=== PATIENT | male | born 1945 | race Caucasian/White ===

== ENCOUNTER → 2018-11-01 | Outpatient (CLI) | payer MEDICARE, BC | END | disposition home or self-care (01) | LOC: PCVCCLINIC 14:36 | PROVIDERS: ATTEND Internal Medicine | DX: I25.119 Atherosclerotic heart disease of native coronary artery with unspecified angina pectoris (principal); I11.0 Hypertensive heart disease with heart failure; I50.32 Chronic diastolic (congestive) heart failure; E78.5 Hyperlipidemia, unspecified; E11.9 Type 2 diabetes mellitus without complications; G47.33 Obstructive sleep apnea (adult) (pediatric); Z91.030 Bee allergy status; Z87.891 Personal history of nicotine dependence; Z72.89 Other problems related to lifestyle; Z79.82 Long term (current) use of aspirin | CPT/HCPCS: 93005; G0463 ==

== ENCOUNTER → 2018-11-01 | Outpatient (CLI) | payer MEDICARE, BC | END | disposition home or self-care (01) | LOC: PCVCCLINIC 15:15 | PROVIDERS: ATTEND Internal Medicine | DX: I25.119 Atherosclerotic heart disease of native coronary artery with unspecified angina pectoris (principal); I11.0 Hypertensive heart disease with heart failure; I50.32 Chronic diastolic (congestive) heart failure; E78.5 Hyperlipidemia, unspecified; E11.9 Type 2 diabetes mellitus without complications; G47.33 Obstructive sleep apnea (adult) (pediatric); Z87.891 Personal history of nicotine dependence; Z72.89 Other problems related to lifestyle; Z91.030 Bee allergy status; Z79.82 Long term (current) use of aspirin; Z79.899 Other long term (current) drug therapy | CPT/HCPCS: 93005; G0463 ==

== ENCOUNTER → 2018-11-06 | Outpatient (CLI) | payer MEDICARE, BC ==
--- NOTE | 2018-11-06 10:48 | PCVCIMAG ---
APPROVED REPORT Indications Bruit Risk Factors Hypertension: Hyperlipidemia Diabetes, Doppler Spectral Velocity Analysis PSV / EDVPSV / EDV ECA (R) 90 / 12 cm/sECA (L) 92 / 16 cm/s dICA (R) 60 / 19 cm/sdICA (L) 49 / 14 cm/s Carol (R) 64 / 19 cm/smICA (L) 152 / 33 cm/s pICA (R) 79 / 21 cm/spICA (L) 153 / 33 cm/s Bulb (R) 55 / 10 cm/sBulb (L) 86 / 19 cm/s dCCA (R) 82 / 18 cm/sdCCA (L) 96 / 25 cm/s mCCA (R) 92 / 18 cm/smCCA (L) 104 / 19 cm/s Vert (R) 36 / 13 cm/sVert (L) 52 / 14 cm/s ICA/CCA 1.59 ICA/CCA 0.86 Basic Measurements Blood Pressure: Pulses: Right Left RightLeft Brachial(Sitting) 124/37rfSr900/88mmHgTemporal Real Time B-Mode Imaging Vert. (R)AntegradeVert. (L)Antegrade Findings The right carotid bulb has moderate calcified plaque. The right proximal internal carotid artery shows <40% stenosis. The right common carotid artery shows no significant stenosis. The right external carotid artery shows no significant stenosis. The left carotid bulb has moderate calcified plaque. The left proximal internal carotid artery shows 50-60% stenosis. The left common carotid artery shows no significant stenosis. The left external carotid artery shows no significant stenosis. Conclusion 1. Right internal carotid artery stenosis (<40%) 2. Left internal carotid artery stenosis (50-60%) 3. Antegrade vertebral flow
--- NOTE | 2018-11-06 15:26 | PCVCIMAG ---
APPROVED REPORT Study performed: 11/06/2018 11:11:42 EXAM: Comprehensive 2D, Doppler, and color-flow Echocardiogram Patient Location: Echo lab Room #: 3Status: routine BSA: 0.87 HR: 54 bpmBP: 128/88 mmHg Rhythm: Bradycardia Other Information Study Quality: Good Risk Factors: Cardiac Risk Factors: HTN,, DM Indications Dyspnea CAD Chest Pain Hx stents x 11 since , diastolic heart failure 2D Dimensions IVSd: 9.02 (7-11mm)LVOT Diam: 20.92 (18-24mm) LVDd: 48.83 mm PWd: 7.44 (7-11mm)Ascending Ao: 36.68 (22-36mm) LVDs: 28.75 (25-40mm) Left Atrium: 29.21 (27-40mm) Aortic Root: 29.96 mm LV Single Plane 4CH: 57.89 % LV Single Plane 2CH: 53.84 % Volumes Left Atrial Volume (Systole) Single Plane 4CH: 53.92 mLSingle Plane 2CH: 53.24 mL Biplane LA Volume: 62.00 mLLA ESV Index: 30.00 mL/m2 Aortic Valve AoV Peak Ton.: 1.72 m/s AO Peak Gr.: 11.86 mmHgLVOT Max P.21 mmHg LVOT Max V: 0.90 m/s EPI Vmax: 1.79 cm2 Mitral Valve E/A Ratio: 0.7 MV Decel. Time: 247.37 ms MV E Max Ton.: 0.47 m/s MV A Ton.: 0.70 m/s MV PHT: 71.74 ms IVRT: 65.74 ms TDI E/Lateral E': 11.75E/Medial E': 15.67 Medial E' Ton.: 0.03 m/s Lateral E' Ton.: 0.04 m/s Pulmonary Valve PV Peak Ton.: 0.91 m/sPV Peak Gr.: 3.33 mmHg Pulmonary Vein P Vein S: 0.50 m/sP Vein A: 0.28 m/s P Vein D: 0.26 m/sP Vein A Dur.: 114.2 msec P Vein S/D Ratio: 1.92 Tricuspid Valve TR Peak Ton.: 1.92 m/s TR Peak Gr.: 14.81 mmHg TV Vmax: 0.41 m/sPA Pressure: 22.00 mmHg Left Ventricle The left ventricle is normal size. There is normal LV segmental wall motion. There is normal left ventricular wall thickness. Left ventricular systolic function is normal. The left ventricular ejection fraction is within the normal range. LVEF is 55-60%. Grade I - abnormal relaxation pattern. Right Ventricle The right ventricle is normal size. The right ventricular systolic function is normal. Atria The left atrium size is normal. Atrial septal aneurysm. The right atrium size is normal. Aortic Valve Aortic valve is trileaflet, leaflets are mildly calcified No aortic regurgitation is present. There is no aortic valvular stenosis. Mitral Valve The mitral valve is normal in structure. There is no mitral valve regurgitation noted. No evidence of mitral valve stenosis. Tricuspid Valve The tricuspid valve is normal in structure. Trace tricuspid regurgitation with a PA pressure of 22 mmHg. No pulmonary hypertension. Pulmonic Valve The pulmonary valve is normal in structure. Mild pulmonic regurgitation. Great Vessels The aortic root is normal in size. The ascending aorta is normal in size. Aortic arch is normal in caliber. IVC is normal in size and collapses >50% with inspiration. Pericardium There is no pericardial effusion. There is no pleural effusion. <Conclusion> Left ventricular systolic function is normal. There is normal LV segmental wall motion. LVEF is 55-60%. Mild diastolic dysfunction Atrial septal aneurysm. Aortic valve is trileaflet, leaflets are mildly calcified. No aortic regurgitation or stenosis The mitral valve is normal in structure. No mitral valve regurgitation. Trace tricuspid regurgitation with a pulmonary artery pressure of 22 mmHg. There is no pericardial effusion.
== END | disposition home or self-care (01) ==
LOC: PCVCIMAG 13:00
PROVIDERS: ATTEND Internal Medicine
DX: I65.23 Occlusion and stenosis of bilateral carotid arteries (principal); R09.89 Other specified symptoms and signs involving the circulatory and respiratory systems; E78.00 Pure hypercholesterolemia, unspecified; E11.9 Type 2 diabetes mellitus without complications; I25.119 Atherosclerotic heart disease of native coronary artery with unspecified angina pectoris; E78.5 Hyperlipidemia, unspecified; I11.0 Hypertensive heart disease with heart failure; I50.32 Chronic diastolic (congestive) heart failure
CPT/HCPCS: 93306; 93880

== ENCOUNTER → 2019-01-20 | Outpatient (CLI) | payer MEDICARE, BC | END | disposition home or self-care (01) | LOC: PCVCCLINIC 14:16 | PROVIDERS: ATTEND Internal Medicine | DX: I25.119 Atherosclerotic heart disease of native coronary artery with unspecified angina pectoris (principal); I10 Essential (primary) hypertension; G47.33 Obstructive sleep apnea (adult) (pediatric); I65.23 Occlusion and stenosis of bilateral carotid arteries; E78.5 Hyperlipidemia, unspecified; E78.00 Pure hypercholesterolemia, unspecified; Z79.82 Long term (current) use of aspirin; Z87.891 Personal history of nicotine dependence | CPT/HCPCS: 36415; 80061; G0463 ==

== ENCOUNTER → 2019-04-29 | Outpatient (CLI) | payer MEDICARE, BC | END | disposition home or self-care (01) | LOC: PCVCCLINIC 13:00 | PROVIDERS: ATTEND Internal Medicine | DX: I25.10 Atherosclerotic heart disease of native coronary artery without angina pectoris (principal); I10 Essential (primary) hypertension; E78.5 Hyperlipidemia, unspecified; G47.33 Obstructive sleep apnea (adult) (pediatric); I65.23 Occlusion and stenosis of bilateral carotid arteries; Z99.89 Dependence on other enabling machines and devices; Z79.82 Long term (current) use of aspirin | CPT/HCPCS: 93005; G0463 ==

== ENCOUNTER → 2019-07-31 | Outpatient (CLI) | payer MEDICARE, BC | END | disposition home or self-care (01) | LOC: PCVCCLINIC 16:21 | PROVIDERS: ATTEND Internal Medicine | DX: I25.10 Atherosclerotic heart disease of native coronary artery without angina pectoris (principal); I10 Essential (primary) hypertension; I65.23 Occlusion and stenosis of bilateral carotid arteries; E78.5 Hyperlipidemia, unspecified; G47.33 Obstructive sleep apnea (adult) (pediatric); Z99.89 Dependence on other enabling machines and devices; Z91.030 Bee allergy status; Z87.891 Personal history of nicotine dependence; Z79.82 Long term (current) use of aspirin; Z79.899 Other long term (current) drug therapy | CPT/HCPCS: 93005; G0463 ==

== ENCOUNTER → 2019-10-30 | Outpatient (CLI) | payer MEDICARE, BC | END | disposition home or self-care (01) | LOC: PCVCCLINIC 13:00 | PROVIDERS: ATTEND Internal Medicine | DX: I25.10 Atherosclerotic heart disease of native coronary artery without angina pectoris (principal); I10 Essential (primary) hypertension; I65.23 Occlusion and stenosis of bilateral carotid arteries; E78.5 Hyperlipidemia, unspecified; G47.33 Obstructive sleep apnea (adult) (pediatric); Z99.89 Dependence on other enabling machines and devices; Z88.8 Allergy status to other drugs, medicaments and biological substances; Z87.891 Personal history of nicotine dependence; Z79.82 Long term (current) use of aspirin; Z79.899 Other long term (current) drug therapy | CPT/HCPCS: 93005; G0463 ==